=== PATIENT | male | born 1965 | race Caucasian/White ===

== ENCOUNTER → 2018-10-24 | Outpatient (CLI) | payer OTHER ==
[~2018-10-24] VITALS: Ht 177.8 cm; Wt 88.5 kg
[~2018-10-24] MED LIST: IBUPROFEN200 M1 PO
--- NOTE | ~2018-10-24 | HPC ---
[facility] [address] [address] PAIN MANAGEMENT CONSULTATION Name: JUAN CARLOS CRUZ Room #: REG [facility] Ilan.#: [id number] Admission: 10/24/18 ������������������ Attend Phys: Jonny Hoffman DO Discharge: ������������������ Date of : 69 Report #: [id number] THIS REPORT FOR: //name// CC: ROXANN physician/PCP Jonny Hoffman DATE OF SERVICE: 10/24/2018 CHIEF COMPLAINT: Low back pain, right lower extremity pain with paresthesias, intermittent left lower extremity pain. HISTORY OF PRESENT ILLNESS: As you know, the patient is a pleasant 53-year-old male who was referred to our service with concern of lumbar radiculopathy. The patient states pain has been present for approximately 4 months. He has undergone home exercise program, which was physician-directed for stretching exercises and strengthening with some improvement in symptoms. He also has trialled massage therapy, which did not provide much in the way of improvement. He has trialled chiropractic manipulation with minimal efficacy. He takes [id number] medications in the form of ibuprofen and/or naproxen depending on how bad his pain is. This does provide minimal benefit. Due to lack of improvement with more conservative treatment options, the patient was subsequently referred to our clinic to discuss options for treatment. The patient indicates today that the pain as steady, describes the pain as burning, aching, sharp, stabbing, numbness and tingling. He places current pain score 7/10, daily average is 5-7/10, and worst pain has been 10/10. The patient states that lifting, working, bending and rotating tends to exacerbate symptoms. Pain can be improved periodically with forward bending and lying down. He has been referred to our service to discuss treatment options for suspected lumbar radiculopathy. PAST MEDICAL HISTORY: None. PAST SURGICAL HISTORY: None. SOCIAL HISTORY: The patient denies tobacco, IV or illicit drug use. Admits to approximately 3 alcoholic beverages per week. He is currently employed as a contractor. He is working, not receiving workmen's compensation nor is he trying to obtain disability benefits. He is not in litigation in regards to pain. He is unaccompanied today. REVIEW OF SYSTEMS: Positive only for low back pain, right lower extremity pain with paresthesias, depression and insomnia. All other review of systems negative per 12-point review of systems other than those listed in history of present illness. [address] [address] PAIN MANAGEMENT CONSULTATION Name: JUAN CARLOS CRUZ Room #: REG CLPritesh Lopez#: [id number] Admission: 10/24/18 ������������������ Attend Phys: Jonny Hoffman DO Discharge: ������������������ Date of : 69 Report #: [id number] Pain impact score 20/70, indicating mild interference of daily activities secondary to pain. ALLERGIES: No reported drug allergies. CURRENT MEDICATIONS: Ibuprofen 200 mg q.i.d. p.r.n. IMAGING: There is no imaging available. PHYSICAL EXAMINATION: VITAL SIGNS: Blood pressure 115/87, pulse 70, respiratory rate 16 and unlabored. The patient is 98% on room air. Height 5 feet 10 inches tall, weight 195 pounds, BMI calculated 28.0. GENERAL: Well-developed, well-nourished, well-hydrated 53-year-old male, appearing stated age, placing current pain score 7/10. HEENT: Normocephalic, atraumatic. Pupils equal, round, reactive to light. Extraocular muscles are intact. Sclerae nonicteric without injection. NEUROLOGIC: Cranial nerves 2-12 grossly intact. Speech is fluent. The patient deemed an excellent historian. LUNGS: Clear. No wheeze, rhonchi or rales. CARDIOVASCULAR: Regular. No appreciable gallop, no rub. ABDOMEN: Soft, nontender, nondistended, normoactive bowel sounds. EXTREMITIES: Show no clubbing, no cyanosis, and no edema. INTEGUMENT: The patient has no rashes, lesions or ulcerations. There are multiple tattoos on several surfaces throughout the body. MUSCULOSKELETAL: Seated straight leg raising negative. Supine straight leg raising positive right at approximately 70 degrees. Ankle clonus negative. Babinski is negative. Muscle bulk and tone appears symmetrical in comparing left lower extremity over right. Deep tendon reflexes 2+/4, patella and Achilles. He is intact to light touch from L1 through S2 dermatomes. Lumbar provocation causes slight increase in overall pain mainly with lateral flexion to the right with rotation. Palpatory tenderness noted over the paraspinal musculature. No spinous process tenderness. ASSESSMENT: 1. Lumbar radiculopathy. 2. Lumbosacral spondylosis with radiculopathy. 3. Chronic intractable pain. PLAN: 1. Based on today's physical exam and history the patient has provided, the description the patient uses in regards to pain as well as location of symptoms and the provocating factors that lead to symptom development and maneuvers to alleviate symptoms, likely source of the patient's pain is a lumbar radiculopathy. The patient and I discussed at length today the treatment options for lumbar radiculopathy. They would include the following: [address] [address] PAIN MANAGEMENT CONSULTATION Name: JUAN CARLOS CRUZ Room #: REG CLPritesh Lopez#: [id number] Admission: 10/24/18 ������������������ Attend Phys: Jonny Hoffman DO Discharge: ������������������ Date of : 69 Report #: [id number] We discussed physical therapy, stretching exercises, core strengthening in a more formalized manner. The patient has been doing this at home under physician direction, but has not noted significant pain improvement. The patient states he has been doing this for about 3 months. Certainly a formalized program could be beneficial. We discussed medication management, adding neuropathic pain medication and a consistent nonsteroidal anti-inflammatory to address pain. We discussed epidural injections for which the patient was referred to our clinic. We also then discussed spinal cord stimulator therapy and surgical options if necessary. After reviewing the risks and benefits of all proposed treatment options, the patient chose to move forward with a lumbar epidural injection under fluoroscopic guidance. 2. The patient was advised of risks and benefits of a lumbar epidural injection. These risks include but are not necessarily limited to bleeding, bruising, infection, worsening pain, no relief of pain, also risk of temporary or permanent muscle weakness, temporary or permanent nerve damage, possible paralysis, post-dural puncture headache and . The patient states understood and wished to proceed. 3. No medication changes made at today's visit. The patient will continue current medical therapy as previously prescribed. 4. We will see the patient back in followup visit in approximately 30 days. At that time, review the efficacy of today's epidural injection to determine if next in the series of epidural injections might be necessary or further evaluation with imaging might be needed. 5. We wish to thank you for the opportunity to see the patient in consultation. We will keep you apprised of his response to treatment as we address suspected lumbar radiculopathy. Again, we wish to thank you for the opportunity to see him in consultation. PROCEDURE NOTE DESCRIPTION OF PROCEDURE: L5-S1 right parasagittal epidural steroid injection under fluoroscopic guidance. This is the first procedure of the first series that the patient is undergoing. After obtaining written consent, the patient was taken back to the fluoroscopy suite, placed in a prone position with pillow under the abdomen to decrease lumbar lordosis. The skin overlying the lumbosacral area was then prepped and draped in aseptic fashion. The L5-S1 vertebral interspace was then identified by AP fluoroscopy. The skin and subcutaneous tissue overlying the target site of injection was anesthetized with 3 mL 1% lidocaine. [address] [address] PAIN MANAGEMENT CONSULTATION Name: JUAN CARLOS CRUZ Room #: REG PAT Lopez#: [id number] Admission: 10/24/18 ������������������ Attend Phys: Jonny Hoffman DO Discharge: ������������������ Date of : 69 Report #: [id number] A 20-gauge 3-1/2 inch Tuohy needle was then advanced under fluoroscopic guidance towards the epidural space using a right parasagittal approach. The epidural space was identified using loss of resistance to air technique. After negative aspiration for heme or cerebrospinal fluid, a total of 1 mL of Omnipaque was injected. A lumbar epidurogram was confirmed using both AP and lateral fluoroscopy. After negative aspiration for heme or cerebrospinal fluid, 5 mL of a solution containing 2 mL, 40 mg per mL, 80 mg total triamcinolone and 3 mL lidocaine 1% was injected in increments. Contrast spread was noted posterior epidural space. The needle was then retracted approximately half way and needle tract flushed with 1 mL of 1% lidocaine. Needle was then removed. There were no apparent sensory or motor deficits in the lower extremity following the procedure. A sterile bandage was placed over the injection site. The heart rate, pulse, oximetry and blood pressure were continuously monitored after the procedure. There were no apparent complications. The patient tolerated the procedure well and was carefully escorted to the recovery room in stable condition. There were no apparent complications. After meeting discharge criteria, the patient was then discharged home. ��������������������������������������������� ���������������������������������������� By: ��������������������������������������������� [id number] Jonny Hoffman DO /nt
[2018-10-24 09:27] VITALS: BP 115/87
--- NOTE | 2018-10-24 09:55 | NUR ---
Pain Clinic Assessment: 1. History of Osteoarthritis: Not Applicable History of Rheumatoid Arthritis: Not Applicable 2. Height: 5 ft. 10 in. 177.8 cm. Weight: 195.0 lb. oz. 88.452 kg. Patient's BMI: 28.0 3. Vital Signs: BP: 115/87 Pulse: 70 Resp: 16 Temp: 02 Sat: 98 ECG Mon: 4. Pain Intensity: 7 5. Fall Risk: Dizziness: N Needs help standing or walking: N Fallen in the last 3 months: N Fall risk comments: 6. Patient on Blood Thinner: None 7. History of Hypertension: N 8. Opioid Therapy greater than 6 weeks: N Opiate Contract Signed: 9. Risk Assessment Tool Provided: 10. Functional Assessment Tool: 11. Recreational Drug Use: Current within past 3 mos Drug Type: MARIJUANIA Tobacco Use: Former Smoker Tobacco Type: Cigarettes Amount or Packs/day: 1 How Many Years: 35 Alcohol Use: Yes Frequency: Weekly Quant: 2-3
== END | disposition home or self-care (01) ==
LOC: PAIN 08:42
DX: M47.27 Other spondylosis with radiculopathy, lumbosacral region (principal); G89.29 Other chronic pain